=== PATIENT | male | born 1970 | race Caucasian/White ===

== ENCOUNTER 2017-08-01 16:30 | Emergency (ER) | payer SELFPAY ==
[~2017-08-01] VITALS: Ht 190.5 cm; Wt 65.8 kg
[2017-08-01 16:30] VITALS: BP 144/79
--- NOTE | 2017-08-01 20:35 | NUR ---
NABIL [id number]; NO ANSWER AND NOT IN LOBBY
== END 2017-08-01 20:35 | disposition left against medical advice (07) ==
LOC: ER 16:33
DX: Z53.21 Procedure and treatment not carried out due to patient leaving prior to being seen by health care provider (principal)
CPT/HCPCS: A4606; Z7610